=== PATIENT | female | born 1985 | race Caucasian/White ===

== ENCOUNTER 2016-09-27 12:55 | Emergency (ER) | payer MEDICAID ==
[~2016-09-27] VITALS: Ht 167.6 cm; Wt 91.6 kg
[2016-09-27 15:41] VITALS: BP 136/84
== END 2016-09-27 15:41 | disposition home or self-care (01) ==
LOC: ED 12:55
DX: M54.5 Low back pain (principal); R03.0 Elevated blood-pressure reading, without diagnosis of hypertension
CPT/HCPCS: J3010